=== PATIENT | male | born 1955 | race African-American/Black ===

== ENCOUNTER 2019-07-24 06:37 | Inpatient (IN) | payer OTHER ==
[~2019-07-24] VITALS: Ht 172.7 cm; Wt 122.4 kg
[~2019-07-24 06:37] MED LIST: SODIUM CHLORIDE 0.9% 1,000 ML IV ONE; SODIUM CHLORIDE 0.9% 1,000 ML ONE
[2019-07-24] MEDS ORDERED: DiphenhydrAMINE HCL 50 MG CAPSULE PO ONE (07:30)
[2019-07-24] MEDS ORDERED: DIAZEPAM 10 MG TABLET PO ONE (07:30)
[2019-07-24] MEDS ORDERED: FentaNYL CITRATE-PF 100 MCG/2 ML VIAL ONE (08:18)
[2019-07-24] MEDS ORDERED: MIDAZOLAM HCL 2 MG/2 ML VIAL ONE ×2 (08:18→08:46)
[2019-07-24] MEDS ORDERED: LIDOCAINE/PF 1% 30 ML VIAL ONE (08:18)
[2019-07-24] MEDS ORDERED: HEPARIN SODIUM,PORCINE 1,000 UNITS/ML 10 ML VIAL ONE (08:18)
[2019-07-24] MEDS ORDERED: VERAPAMIL HCL 2.5 MG/ML 2 ML VIAL ONE (08:18)
[2019-07-24] MEDS ORDERED: HEPARIN SODIUM 1000 UNITS/NS 1,000 ML ONE (08:19)
[2019-07-24] MEDS ORDERED: NITROGLYCERIN 50 MG/D5% WATER 250 ML ONE (08:19)
[2019-07-24] MEDS ORDERED: IOHEXOL 300 MG/ML 150 ML VIAL ONE ×2 (08:19→09:09)
[2019-07-24] MEDS ORDERED: FentaNYL CITRATE-PF 100 MCG/2 ML VIAL IVP ONE ×3 (08:45→10:15)
[2019-07-24] MEDS ORDERED: MIDAZOLAM HCL 2 MG/2 ML VIAL IVP ONE ×3 (08:45→10:15)
[2019-07-24] MEDS ORDERED: SODIUM CHLORIDE 0.9% 500 ML IV ONE ×2 (08:48→10:30)
[2019-07-24] MEDS ORDERED: HEPARIN SODIUM 2,000 UNITS in HEPARIN SODIUM 1000 UNITS/NS 1,000 ML IARTER ONE (08:48)
[2019-07-24] MEDS ORDERED: HEPARIN SODIUM 1000 UNITS/NS 1,000 ML IARTER ONE (08:48)
[2019-07-24] MEDS ORDERED: IOHEXOL 300 MG/ML 150 ML VIAL ICOR ONE (09:00)
[2019-07-24] MEDS ORDERED: LIDOCAINE 1% 30 ML/SOD BICARB 8.4% 4 ML SQ ONE (09:00)
[2019-07-24] MEDS ORDERED: HEPARIN SODIUM,PORCINE 1,000 UNITS/ML 10 ML VIAL IVP ONE ×3 (09:15→10:15)
[2019-07-24 10:10] VITALS: BP 150/84
[2019-07-24] MEDS ORDERED: NITROGLYCERIN/D5W 50 MG/250 ML IV BOTTLE ICOR ONE (10:15)
[2019-07-24] MEDS ORDERED: ROSUVASTATIN CALCIUM 20 MG TABLET PO SCH ×2 (10:30→21:00)
[2019-07-24] MEDS ORDERED: MORPHINE SULFATE 2 MG/ML SYRINGE IVP PRN (10:30)
[2019-07-24] MEDS: ISOSORBIDE MONONITRATE 60 MG ER TABLET PO SCH (10:30)
[2019-07-24] MEDS ORDERED: LOSARTAN POTASSIUM 50 MG TABLET PO SCH ×2 (10:30→21:00)
[2019-07-24] MEDS ORDERED: ACETAMINOPHEN 325 MG TABLET PO PRN (10:30)
[2019-07-24] MEDS ORDERED: OxyCODONE HCL/ACETAMINOPHEN 5-325 MG TABLET PO PRN (10:30)
[2019-07-24] MEDS: ASPIRIN 81 MG EC TABLET PO SCH (10:30)
[2019-07-24] MEDS ORDERED: CLOPIDOGREL BISULFATE 75 MG TABLET PO ONE (11:00)
[2019-07-24] MEDS ORDERED: ALBUTEROL SULFATE HFA 90 MCG/PUFF 8 GM INHALER IH PRN (11:15)
[2019-07-24 16:10] VITALS: BP 141/87
[2019-07-24 20:17] VITALS: BP 124/68
[2019-07-24] MEDS: METOPROLOL TARTRATE 50 MG TABLET PO SCH (21:00)
[2019-07-25 01:00] VITALS: BP 125/62
[2019-07-25 04:10] VITALS: BP 122/61
[2019-07-25 07:46] VITALS: BP 150/96
[2019-07-25] MEDS: ASPIRIN 81 MG EC TABLET PO SCH (08:06)
[2019-07-25] MEDS: METOPROLOL TARTRATE 50 MG TABLET PO SCH (08:06)
[2019-07-25] MEDS: ISOSORBIDE MONONITRATE 60 MG ER TABLET PO SCH (11:31)
[2019-07-25] MEDS ORDERED: ASPI-1111 PO (11:47)
[2019-07-25] MEDS ORDERED: ISOS60TA4 PO (11:48)
[2019-07-25] MEDS ORDERED: LOSA50TA37 PO (11:48)
[2019-07-25] MEDS ORDERED: METO50 PO (11:49)
[2019-07-25] MEDS ORDERED: ROSU20TA23 PO (11:49)
== END 2019-07-25 12:20 | disposition home or self-care (01) | DRG 175 ==
LOC: CATHLAB 06:37 → 5S 06:38
PROVIDERS: ADMIT Internal Medicine Cardiovascular Disease; ATTEND Internal Medicine Cardiovascular Disease
PROC: 027034Z Dilation of Coronary Artery, One Artery with Drug-eluting Intraluminal Device, Percutaneous Approach (ICD-10-PCS; principal; 2019-07-24)
PROC: 4A023N7 Measurement of Cardiac Sampling and Pressure, Left Heart, Percutaneous Approach (ICD-10-PCS; 2019-07-24)
PROC: B2111ZZ Fluoroscopy of Multiple Coronary Arteries using Low Osmolar Contrast (ICD-10-PCS; 2019-07-24)
PROC: B2151ZZ Fluoroscopy of Left Heart using Low Osmolar Contrast (ICD-10-PCS; 2019-07-24)
PROC: B2121ZZ Fluoroscopy of Single Coronary Artery Bypass Graft using Low Osmolar Contrast (ICD-10-PCS; 2019-07-24)
PROC: B2181ZZ Fluoroscopy of Left Internal Mammary Bypass Graft using Low Osmolar Contrast (ICD-10-PCS; 2019-07-24)
DX: I25.119 Atherosclerotic heart disease of native coronary artery with unspecified angina pectoris (principal); Z68.41 Body mass index [BMI] 40.0-44.9, adult; E66.9 Obesity, unspecified; E78.5 Hyperlipidemia, unspecified; I10 Essential (primary) hypertension; I73.9 Peripheral vascular disease, unspecified; K21.9 Gastro-esophageal reflux disease without esophagitis; Z95.1 Presence of aortocoronary bypass graft; Z95.5 Presence of coronary angioplasty implant and graft; Z03.818 Encounter for observation for suspected exposure to other biological agents ruled out
CPT/HCPCS: 93005; J1644; J2250; J3010; J3490; J7030; J7040; Q9967

== ENCOUNTER 2020-06-16 08:29 | Day surgery (SDC) | payer OTHER ==
[2020-06-15 11:34] LABS: COVID AG,FIA SOURCE NASOPHARYNGEAL
[~2020-06-16] VITALS: Ht 172.7 cm; Wt 122.7 kg
[~2020-06-16 08:29] MED LIST changes: +ASPI-1444 PO; +CLOP75TA32 PO; +EZET10TA57 PO; +ISOS60TA77 PO; +LOSA50TA37 PO; +METO50 PO; +NITR0.4T50 SL; +RANO500T6 PO; +ROSU20TA73 PO; -SODIUM CHLORIDE 0.9% 1,000 ML IV ONE; -SODIUM CHLORIDE 0.9% 1,000 ML ONE
[2020-06-16] MEDS ORDERED: SODIUM CHLORIDE 0.9% 1,000 ML ONE (08:39)
[2020-06-16] MEDS ORDERED: IOHEXOL 300 MG/ML 50 ML VIAL ONE (08:41)
[2020-06-16] MEDS ORDERED: IOHEXOL 300 MG/ML 150 ML VIAL ONE ×2 (08:41→12:45)
[2020-06-16] MEDS ORDERED: HEPARIN SODIUM 1000 UNITS/NS 1,000 ML ONE (08:41)
[2020-06-16] MEDS ORDERED: LIDOCAINE/PF 1% 30 ML VIAL ONE (08:41)
[2020-06-16] MEDS ORDERED: SODIUM BICARBONATE 50 MEQ/50 ML VIAL ONE (08:41)
[2020-06-16] MEDS ORDERED: SODIUM CHLORIDE 0.9% 1,000 ML IV ONE (09:00)
[2020-06-16 09:20] LABS: BASOPHILS % (AUTO) 0.3 % (0.0-2.0); EOSINOPHILS % (AUTO) 1.5 % (1.0-6.0); HEMOGLOBIN 14.5 g/dL (13.5-17.5); LYMPHOCYTES # (AUTO) 1.8 K/uL (1.0-4.8); LYMPHOCYTES % (AUTO) 21.5 % (22.0-44.0); MEAN CORPUSCULAR HEMOGLOBIN 30.1 pg (26.0-34.0); MEAN CORPUSCULAR HGB CONC 33.1 G/dL (31.0-37.0); MEAN CORPUSCULAR VOLUME 91 fL (80-100); MONOCYTES % (AUTO) 11.5 % (2.0-9.0); NEUTROPHILS # (AUTO) 5.4 K/uL (1.8-7.7); NEUTROPHILS % (AUTO) 65.2 % (40.0-70.0); PLATELET COUNT (AUTO) 201 K/uL (150-450); RED BLOOD CELL COUNT(AUTO) 4.84 MIL/uL (4.50-5.90); RED CELL DISTRIBUTION WIDTH 14.3 % (11.5-14.5)
[2020-06-16 09:28] LABS: ANION GAP 8 mmol/L (8-16); CALCIUM, TOTAL 9.2 mg/dL (8.8-10.5); CARBON DIOXIDE 28 mmol/L (22-29); CHLORIDE 102 mmol/L (98-107); CREATININE 0.74 mg/dL (0.60-1.30); GLOMERULAR FILTR. RATE CALC > 60 mL/min (>60); GLUCOSE,RANDOM 98 mg/dL (70-110); POTASSIUM 4.4 mmol/L (3.5-5.1); SODIUM SERUM 138 mmol/L (136-145); UREA NITROGEN, BLOOD 11 mg/dL (7-18)
[2020-06-16 09:32] LABS: PROTHROMBIN TIME 11.1 SEC (9.4-11.6)
[2020-06-16 09:34] LABS: ALANINE AMINOTRANSFERASE 30 U/L (12-78); ALBUMIN 3.9 g/dL (3.4-5.0); ALKALINE PHOSPHATASE 80 U/L (46-116); ASPARTATE AMINOTRANSFERASE 18 U/L (15-37); BILIRUBIN,TOTAL 0.7 mg/dL (0.1-1.0); TOTAL PROTEIN, SERUM 7.6 g/dL (6.4-8.2)
[2020-06-16 11:21] VITALS: BP 140/78
[2020-06-16] MEDS ORDERED: FentaNYL CITRATE PF 100 MCG/2 ML VIAL ONE ×2 (11:43→12:28)
[2020-06-16] MEDS ORDERED: MIDAZOLAM HCL 2 MG/2 ML VIAL ONE ×2 (11:44→12:28)
[2020-06-16] MEDS ORDERED: IOHEXOL 300 MG/ML 150 ML VIAL IARTER ONE (12:00)
[2020-06-16] MEDS ORDERED: LIDOCAINE 1% 30 ML/SOD BICARB 8.4% 4 ML SQ ONE (12:00)
[2020-06-16] MEDS ORDERED: HEPARIN SODIUM 1000 UNITS/NS 1,000 ML IARTER ONE (12:00)
[2020-06-16] MEDS ORDERED: MIDAZOLAM HCL 2 MG/2 ML VIAL IVP ONE ×3 (12:00→12:45)
[2020-06-16] MEDS ORDERED: FentaNYL CITRATE PF 100 MCG/2 ML VIAL IVP ONE ×3 (12:00→12:45)
[2020-06-16] MEDS ORDERED: TICAGRELOR 90 MG TABLET ONE (12:24)
[2020-06-16] MEDS ORDERED: ASPIRIN 81 MG CHEWABLE TABLET ONE (12:25)
[2020-06-16] MEDS ORDERED: TICAGRELOR 90 MG TABLET PO ONE ×2 (12:45→19:00)
[2020-06-16] MEDS ORDERED: ASPIRIN 81 MG CHEWABLE TABLET PO ONE (12:45)
[2020-06-16] MEDS ORDERED: HEPARIN SODIUM,PORCINE 5,000 UNITS/ML VIAL IVP ONE (12:45)
[2020-06-16 12:52] VITALS: BP 117/68
== END 2020-06-16 17:30 | disposition home or self-care (01) ==
LOC: CATHLAB 08:29
PROVIDERS: ATTEND Specialist
DX: R07.9 Chest pain, unspecified (principal); R94.39 Abnormal result of other cardiovascular function study; I25.119 Atherosclerotic heart disease of native coronary artery with unspecified angina pectoris; I10 Essential (primary) hypertension; G62.9 Polyneuropathy, unspecified; F17.210 Nicotine dependence, cigarettes, uncomplicated; E66.9 Obesity, unspecified; I73.9 Peripheral vascular disease, unspecified; Z95.5 Presence of coronary angioplasty implant and graft; Z98.890 Other specified postprocedural states; E78.5 Hyperlipidemia, unspecified; Z79.899 Other long term (current) drug therapy; Z79.82 Long term (current) use of aspirin
CPT/HCPCS: 36415; 80053; 85025; 85610; 85730; 87426; 93005; 93459; 99152; 99153; C1760; C1874; C1887; C9600; C9803; J1644; J2250; J3010; J3490 ×2; J7030; Q9967 ×2; 92920; 92928